=== PATIENT | male | born 1950 | race Two or more races ===

== ENCOUNTER 2025-07-21 08:49 | Outpatient (CLI) | payer OTHER | END 2025-07-21 08:57 | disposition home or self-care (01) | LOC: TOM 08:49 | PROVIDERS: ATTEND Orthopaedic Surgery | DX: S42.241A 4-part fracture of surgical neck of right humerus, initial encounter for closed fracture (principal) ==

== ENCOUNTER 2025-07-26 08:45 | Outpatient (CLI) | payer OTHER ==
[~2025-07-26] VITALS: Ht 180.3 cm; Wt 88.5 kg
[2025-07-26 10:50] VITALS: BP 144/77
[2025-07-26] MEDS ORDERED: LUMIGAN2.5 M1 (13:12)
== END 2025-07-26 08:48 | disposition home or self-care (01) ==
LOC: RAD 08:45
PROVIDERS: ATTEND Orthopaedic Surgery
DX: S42.241A 4-part fracture of surgical neck of right humerus, initial encounter for closed fracture (principal); X58.XXXA Exposure to other specified factors, initial encounter; Y93.9 Activity, unspecified; Y92.9 Unspecified place or not applicable; Y99.9 Unspecified external cause status

== ENCOUNTER 2025-07-26 10:05 | Outpatient (CLI) | payer OTHER ==
[2025-07-26 11:17] LABS: BASO % 0.9 % (0.1-1.2); EOS # 0.11 (0.04-0.54); EOS % 1.9 % (0.7-7.0); LYMPH # 1.23 (1.18-3.74); LYMPH % 21.2 % (19.3-53.1); MEAN PLATELET VOLUME 9.50 fl (9.4-12.4); MONO # 0.61 (0.24-0.82); MONO % 10.5 % (4.7-12.5); NEUT # 3.78 (1.56-6.13); NEUT % 65.2 % (34.0-71.1); RED CELL DISTRIBUTION WIDTH 13.2 % (11.6-14.4)
[2025-07-26 11:34] LABS: URINE APPEARANCE Clear; URINE BILIRRUBIN Negative (NEGATIVE); URINE BLOOD Negative; URINE COLOR Yellow; URINE GLUCOSE Negative (NEGATIVE); URINE KETONE Trace (NEGATIVE); URINE LEUKOCYTE Negative; URINE NITRATE Negative; URINE PROTEIN Negative (NEGATIVE); URINE UROBILINOGEN 0.2 E.U./dl
[2025-07-26 11:39] LABS: URINE BACTERIA 8.0 uL (0.0-1933); URINE EPITHELIAL CELLS 1.8 uL (0.0-38.8); URINE RBC 3.2 uL (0.0-20.8); URINE WBC 3.3 uL (0.0-23.2)
[2025-07-26 11:45] LABS: URINE CAST 0.28 uL (0.0-1.40)
[2025-07-26 11:47] LABS: COL EPI 81 SECONDS (82-175)
[2025-07-26 11:50] LABS: ALT/SGPT 65.0 U/L (12-78); AST/SGOT 35.0 U/L (15-37); BILIRUBIN TOTAL 0.68 mg/dL (0.3-1.2); BUN CREA RATIO 25.0 (7.0-25.0); CREATININE SERUM 0.91 mg/dL (0.70-1.30); GFR 80.79; GLOBULINA 3.7 G/DL (2.4-3.5); GLUCOSE FASTING 106.0 mg/dL (65-100); OSMOLALITY SERUM 289.0 MOSM/KG (275-295)
[2025-07-26 11:55] LABS: INR 1.02
[2025-07-26] MEDS ORDERED: LUMIGAN2.5 M1 (13:12)
== END 2025-07-26 10:21 | disposition home or self-care (01) ==
LOC: RAD 10:05
PROVIDERS: ATTEND Orthopaedic Surgery
DX: D64.9 Anemia, unspecified (principal); E88.9 Metabolic disorder, unspecified; D68.8 Other specified coagulation defects; N39.0 Urinary tract infection, site not specified; Z22.322 Carrier or suspected carrier of Methicillin resistant Staphylococcus aureus; E11.8 Type 2 diabetes mellitus with unspecified complications; Z76.89 Persons encountering health services in other specified circumstances; I10 Essential (primary) hypertension

== ENCOUNTER 2025-07-31 08:00 | Inpatient (IN) | payer OTHER ==
[2025-07-28 11:58] VITALS: BP 144/77
[2025-07-28 14:02] LABS: COVID-19 AG NEGATIVE (NEGATIVE)
[~2025-07-31] VITALS: Ht 177.8 cm; Wt 88.5 kg
[~2025-07-31 08:00] MED LIST: LUMIGAN2.5 M1
[2025-07-31] MEDS ORDERED: CEFAZOLIN SODIUM 1,000 MG VIAL ONE (08:37)
[2025-07-31] MEDS ORDERED: LIDOCAINE HCL 1%/EPINEPHRINE 20ML VIAL IJ ONE ×2 (09:56→10:40)
[2025-07-31] MEDS ORDERED: TRANEXAMIC ACID 100MG/1ML (1000MG) AMPUL ONE (09:56)
[2025-07-31] MEDS ORDERED: BUPIVACAINE HCL/MPF 0.5% 30ML VIAL ONE ×2 (09:56→10:39)
[2025-07-31] MEDS ORDERED: EPINEPHRINE HCL/PF 1 MG/ML AMPUL ONE (10:38)
[2025-07-31] MEDS ORDERED: VANCOMYCIN HCL 1,000 MG VIAL ONE (10:39)
[2025-07-31] MEDS ORDERED: KETOROLAC TROMETHAMINE 60 MG VIAL IM ONE (10:39)
[2025-07-31] MEDS ORDERED: POLYMYXIN B SULFATE 500,000 U VIAL ONE (10:39)
[2025-07-31] MEDS ORDERED: CEFTRIAXONE SODIUM 2,000 MG VIAL ONE (13:01)
[2025-07-31] MEDS ORDERED: SUGAMMADEX SODIUM 200 MG/2 ML VIAL IV ONE (13:01)
[2025-07-31] MEDS ORDERED: ENALAPRILAT DIHYDRATE 1.25 MG/ML VIAL IV ONE (14:59)
[2025-07-31] MEDS ORDERED: PANTOPRAZOLE SODIUM 40 MG TABLET.DR PO SCH (15:13)
[2025-07-31] MEDS ORDERED: PROMETHAZINE HCL 50 MG/ML AMPUL IM PRN (15:15)
[2025-07-31] MEDS ORDERED: TRAMADOL HCL 50 MG TABLET PO PRN (15:15)
[2025-07-31] MEDS ORDERED: ONDANSETRON HCL 2 MG/ML VIAL IV PRN (15:15)
[2025-07-31] MEDS ORDERED: SODIUM CHLORIDE 0.45 % 1,000 ML IV SCH (15:15)
[2025-07-31] MEDS ORDERED: ONDANSETRON 4 MG TAB.RAPDIS PO PRN (15:15)
[2025-07-31] MEDS ORDERED: CELECOXIB 200 MG CAPSULE PO SCH (17:00)
[2025-07-31] MEDS ORDERED: ACETAMINOPHEN 325 MG TABLET PO SCH (17:00)
[2025-07-31 19:38] VITALS: BP 138/70; O2SAT 95
[2025-08-01 00:34] VITALS: BP 124/67; O2SAT 98
[2025-08-01 08:35] VITALS: BP 125/70; O2SAT 96
[2025-08-01] MEDS ORDERED: CEFTRIAXONE SODIUM 2,000 MG VIAL IV ONE (09:00)
[2025-08-01] MEDS ORDERED: CEFTRIAXONE SODIUM 2,000 MG VIAL IV NR (13:00)
[2025-08-02] MEDS ORDERED: SENNA/DOCUSATE SODIUM 1 TAB TABLET PO SCH (09:00)
== END 2025-08-01 15:46 | disposition home or self-care (01) | DRG 494 ==
LOC: CIR.AMB 08:00 → SURG 16:48
PROVIDERS: ADMIT Orthopaedic Surgery; ATTEND Orthopaedic Surgery
PROC: 0LQ10ZZ Repair Right Shoulder Tendon, Open Approach (ICD-10-PCS; 2025-07-31)
PROC: 0LS30ZZ Reposition Right Upper Arm Tendon, Open Approach (ICD-10-PCS; 2025-07-31)
PROC: 0PB90ZZ Excision of Right Clavicle, Open Approach (ICD-10-PCS; 2025-07-31)
PROC: 0PSC36Z Reposition Right Humeral Head with Intramedullary Internal Fixation Device, Percutaneous Approach (ICD-10-PCS; principal; 2025-07-31 09:30)
DX: S42.231A 3-part fracture of surgical neck of right humerus, initial encounter for closed fracture (principal); S42.291A Other displaced fracture of upper end of right humerus, initial encounter for closed fracture; S46.011A Strain of muscle(s) and tendon(s) of the rotator cuff of right shoulder, initial encounter